=== PATIENT | female | born 1990 | race Caucasian/White ===

== ENCOUNTER 2016-06-14 14:25 | Emergency (ER) | payer MEDICAID, SELFPAY ==
[~2016-06-14 14:25] MED LIST: Sodium Chloride 0.9% 1,000 ML BAG ONE
== END 2016-06-14 16:25 | disposition left against medical advice (07) ==
LOC: MADERS 14:25
DX: O60.03 Preterm labor without delivery, third trimester (principal); Z3A.34 34 weeks gestation of pregnancy
CPT/HCPCS: 96360; J7050